=== PATIENT | female | born 1960 | race Hispanic/Latino ===

== ENCOUNTER 2016-12-06 02:21 | Emergency (ER) | payer OTHER ==
[~2016-12-06 02:21] MED LIST: CICL34.62 TP; GLBR5T PO; METF10002 PO
[2016-12-06 02:27] VITALS: BP 164/94; PULSE 86; RESP 22; O2SAT 97
--- NOTE | 2016-12-06 02:35 | ED.REPORT ---
HPI-Abd Pain F 40 and Over Date of Service December 06, 2016 ED Provider: Rei Sherwood MD 56 year old Lao-speaking female with a history of diabetes presents to the ER accompanied by her complaining of two days of dysuria. She suspects that symptoms are associated with drinking milk. Associated symptoms include urinary urgency, urinary hesitancy, hematuria, bowel hesitancy, and chills. Patient does not voice any further medical complaints. Nursing Notes Stated Complaint: PAIN Chief Complaint: General Complaint Nursing Notes Reviewed: Yes Allergies: Coded Allergies: No Known Allergies (Verified Allergy, Unknown, 06/25/16) tolterodine (Verified Allergy, Unknown, constipation and difficulty urinating, 06/25/16) Scheduled Cephalexin (Keflex) 500 Mg Capsule 500 MG PO QID Glyburide (Glyburide) 5 Mg Tab 5 MG PO BIDAC Metformin (Metformin) 1,000 Mg Tablet 1,000 MG PO BIDWM Scheduled PRN Ibuprofen (Ibuprofen) 600 Mg Tablet 600 MG PO QID PRN PRN For Pain Phenazopyridine (Phenazopyridine) 100 Mg Tablet 100 MG PO TID PRN PRN dysuria Miscellaneous Medications Ciclopirox/Ure/Camph/Menth/Euc (Ciclopirox 8% Treatment Kit) 34.6 Ml Solution 34.6 ML TP General Time Seen by MD: 02:34 Chief Complaint Dysuria Hx Obtained From: Patient Arrived By: Walk-in Sudden in Onset?: No Onset Occurred: 2 days ago Associated with: Reports: Chills, Hematuria Pertinent Negative: Pt denies other symptoms Similar Sx Previous: No Past Medical History Past Medical History Arthritis Diabetic gastroparesis Reports: Diabetes mellitus, Hypertension Past Surgical History Ovarian cyst removal Family History Reviewed, not relevant Smoking History Never Smoker Social History Alcohol Use: Denies alcohol use Drug Use: Denies drug use Other Social History: Frequent ED visitor Ambulatory Status Independent Review of Systems Constitutional: Reports: Chills Respiratory: Denies: Non-productive cough, Shortness of breath Cardiovascular: Denies: Chest pain GI: Denies: Abdominal pain, Constipation, Diarrhea, Nausea, Vomiting Female: Reports: Dysuria, Hematuria, Urinary urgency Complete sys rev & neg: except as marked. Physical Exam Vital Signs Vital Signs (First) Date Time Temp Pulse Resp B/P Pulse Ox O2 Delivery O2 Flow Rate FiO2 12/06/16 02:27 36.2 86 22 164/94 97 Room Air Initial VS: Reviewed Head / Eyes: Atraumatic, Normocephalic Neck: Supple, Non-tender, Full range of motion Extremities: Vascular intact, Neuro intact, No swelling, No tenderness Skin: Warm, Dry, No cyanosis Neurologic: Alert, Oriented, Nonfocal General/Constitutional: Awake, Alert, Well developed, Well nourished Respiratory / Chest: Breath sounds NL, Breath sounds = bilat, No respiratory distress, No rales, No rhonchi, No wheezing, No stridor Cardiovascular: Heart rate NL, Regular rhythm, Heart sounds NL, Peripheral circulation NL Abdomen: Soft, Non-tender, No guarding, No rebound, No distention Back: Inspection NL, Non-tender, No CVA tenderness Interpretation & Diagnostics Lab Results Interpretation Result Diagram: 12/06/16 0320 12/06/16 0320 Test 12/06/16 02:40 12/06/16 03:20 Urine Color Straw (YELLOW) Urine Appearance Cloudy (CLEAR,HAZY) Urine pH 6.0 (5.0-8.0) Urine Specific Samson 1.015 (1.003-1.035) Urine Protein 100mg/dL (NEG,TRACE) Urine Glucose (UA) 250mg/dL (NEGATIVE) Urine Ketones Negativemg/dL (NEGATIVE) Urine Occult Blood Large (NEGATIVE) Urine Nitrite Negative (NEGATIVE) Urine Bilirubin Negative (NEGATIVE) Urine Urobilinogen Normalmg/dL (NORMAL) Urine Leukocyte Esterase Moderate (NEGATIVE) Urine RBC >50/hpf (0-2) Urine WBC >50/hpf (0-5) Urine Epithelial Cells Few/hpf (NONE-MOD) Urine Crystals None seen (NONE SEEN) Urine Bacteria Moderate/hpf (NONE-FEW) Urine Hyaline Casts None/lpf (NONE) Urine Granular Casts None seen (NONE SEEN) Urine Waxy Casts None seen (NONE SEEN) Urine Red Blood Cell Casts None seen (NONE SEEN) Urine White Blood Cell Casts None seen (NONE SEEN) Urine Mucus None seen (None Seen) Urine Trichomonas None seen (NONE SEEN) Urine Yeast None (NONE SEEN) Urinalysis Comment None Urine Culture Reflexed Indicated White Blood Count 12.0th/mm3 (3.8-10.1) Red Blood Count 4.43mil/mm3 (3.90-5.20) Hemoglobin 12.7g/dL (12.0-15.6) Hematocrit 37.6% (35.0-46.0) Mean Corpuscular Volume 84.9fL (81-100) Mean Corpuscular Hemoglobin 28.7pg (27.0-35.0) Mean Corpuscular Hemoglobin Concent 33.8% (32.0-37.0) Red Cell Distribution Width 13.0% (12.3-15.4) Platelet Count 241bil/L (150-400) Neutrophils (%) (Auto) 75.3% (40-74) Lymphocytes (%) (Auto) 18.8% (14-46) Monocytes (%) (Auto) 4.7% (4-12) Eosinophils (%) (Auto) 0.8% (0-5) Basophils (%) (Auto) 0.2% (0-3) Sodium Level 138mEq/L (134-144) Potassium Level 3.7mEq/L (3.5-5.2) Chloride Level 100mEq/L (97-108) Carbon Dioxide Level 24mmol/L (18-29) Blood Urea Nitrogen 11mg/dL (6-24) Creatinine 0.53mg/dL (0.57-1.00) Estimat Glomerular Filtration Rate 171mL/min (>59) Glucose Level 184mg/dL (60-99) Lactic Acid Level 1.9mmol/L (0.4-2.0) Calcium Level 9.1mg/dL (8.5-10.1) Magnesium Level 1.8mg/dL (1.6-2.6) Total Bilirubin 0.3mg/dL (0.0-1.2) Aspartate Amino Transf (AST/SGOT) 25U/L (0-50) Alanine Aminotransferase (ALT/SGPT) 24U/L (0-32) Alkaline Phosphatase 197U/L (25-150) Total Protein 7.5g/dL (6.4-8.4) Albumin 4.2g/dL (3.4-5.0) Lipase 39U/L (13-60) Re-Eval/Medical Decision Med Decision/Clinical Course 56-year-old with non-insulin dependent diabetes presents with UTI symptoms and grossly infected urine. Begun with Rocephin here IV. She is much improved after hydration and the 2 g dose of Rocephin. Home with Keflex 4 times a day for ten days. Pyridium when necessary. Ibuprofen when necessary. Discharged in stable and improved condition. Source of Hx: Old records Re-Evaluation/Progress : Time of Eval: 04:27 Re-Evaluation/Progress Note: Patient is improved after IV medications. Discussed lab results and plan to discharge. Patient is amenable to the plan. Return precautions given. All other questions addressed. Counseled Regarding: Diagnosis, Lab results, Need for follow-up, When/why to return to ED Discharge & Departure Primary Impression: Urinary tract infection Disposition: Home Discharge Condition All VS Reviewed: Yes Condition: Stable Patient Instructions: Urinary Tract Infection in Women (GEN) Additional Instructions: Begin Keflex four times daily Drink plenty of fluids and stay well-hydrated Ibuprofen four times daily if needed for aches and fever. Phenazopyridine three times daily if needed for painful urination. Follow up with your doctor in the office. Return here if worse despite treatment, or other new symptoms develop. Comience Keflex cuatro veces al da Mariann mucho lquido y mantenerse chris hidratado Ibuprofeno cuatro veces al da si es necesario para los rita y la fiebre. Fenazopiridina dunia veces al da si es necesario para la miccin dolorosa. Siga con austin mdico en la oficina. Vuelva aqu si es peor a pesar del tratamiento, u otros nuevos sntomas se desarrollan. Referrals: Jenna Davidson (PCP) Scribe Attestation Portions of this note were transcribed by Gregory Keyes. I, Dr. Sherwood, personally performed the history, physical exam and medical decision-making; I reviewed and confirmed the accuracy of the information in the transcribed note. Signed by: Quin Rosenthal, 12/06/2016 at 04:39 copies to: Jenna Davidson Christopher W MD December 06, 2016 02:35 GREGORY KEYES December 06, 2016 02:39
[2016-12-06] MEDS ORDERED: cefTRIAXone Inj 2,000 MG in Dextrose 5% Minibag Plus 50 ML IV ONE ×2 (02:50→04:00)
[2016-12-06 02:53] LABS: APPEARANCE,URINE CLOUDY (CLEAR,HAZY); COLOR,URINE STRAW (YELLOW)
[2016-12-06 02:54] LABS: OCCULT BLOOD,URINE LARGE (NEGATIVE); UROBILINOGEN,URINE NORMAL (NORMAL)
[2016-12-06 03:27] LABS: BASOPHILS % (AUTO) 0.2 % (0-3); EOSINOPHILS % (AUTO) 0.8 % (0-5); MONOCYTES % (AUTO) 4.7 % (4-12); Mean Corpuscular Hemoglobin 28.7 pg (27.0-35.0); Mean Corpuscular Volume 84.9 fL (81-100); NEUTROPHILS % (AUTO) 75.3 % (40-74); Platelet Count 241 bil/L (150-400)
[2016-12-06 03:50] LABS: Magnesium 1.8 mg/dL (1.6-2.6)
[2016-12-06] MEDS ORDERED: CEPH-512 PO (04:34)
[2016-12-06] MEDS ORDERED: PHEN-773 PO (04:34)
[2016-12-06] MEDS ORDERED: IBUP-1827 PO (04:35)
[2016-12-06 04:39] VITALS: BP 153/88; PULSE 82; RESP 20; O2SAT 98
== END 2016-12-06 04:36 | disposition home or self-care (01) ==
LOC: SED 02:21
DX: N39.0 Urinary tract infection, site not specified (principal); B96.20 Unspecified Escherichia coli [E. coli] as the cause of diseases classified elsewhere; I10 Essential (primary) hypertension; E11.43 Type 2 diabetes mellitus with diabetic autonomic (poly)neuropathy; K31.84 Gastroparesis; Z79.84 Long term (current) use of oral hypoglycemic drugs; Z88.8 Allergy status to other drugs, medicaments and biological substances
CPT/HCPCS: 36415; 80053; 81000; 83605; 83690; 83735; 85025; 87077; 87086; 87088; 87147; 87186; 96365; 99284; J0696